=== PATIENT | male | born 1970 | race African-American/Black ===

== ENCOUNTER 2016-11-12 13:55 | Emergency (ER) | payer MEDICAID ==
[~2016-11-12] VITALS: Ht 188 cm; Wt 125.0 kg
[2016-11-12 14:27] VITALS: BP 154/96
[2016-11-12] MEDS ORDERED: IBUPROFEN 600MG TABLET PO ONE (17:00)
== END 2016-11-12 17:39 | disposition home or self-care (01) ==
LOC: ER 14:59
DX: S83.92XA Sprain of unspecified site of left knee, initial encounter (principal); X58.XXXA Exposure to other specified factors, initial encounter; Y93.89 Activity, other specified; Y92.89 Other specified places as the place of occurrence of the external cause; Y99.8 Other external cause status
CPT/HCPCS: 73562; 99284